=== PATIENT | male | born 1940 | race Caucasian/White ===

== ENCOUNTER 2020-03-11 13:12 | Day surgery (SDC) | payer MEDICARE ==
[~2020-03-11] VITALS: Ht 175.3 cm; Wt 97.8 kg
[~2020-03-11 13:12] MED LIST: CLOP75TA35 PO; ENAL10TA19 PO; LIDOcaine 1% W/epiNEPHrine 1:100,000 20ml vial ONE; METO-539 PO; PROP20TA6 PO; SPIR25TA5 PO; TRAM50TA2 PO; fentaNYL/PF 50MCG/1 ML 2ML syringe ONE; midazolam 2 mg/2 ml injection ONE; vancomycin 1,000mg inj ONE
[2020-03-11] MEDS ORDERED: normal saline 1000ml 1,000 ML IV ONE (13:35)
[2020-03-11] MEDS ORDERED: ceFAZolin 2gm in dextrose, iso 50 ML IV ONE (13:40)
[2020-03-11] MEDS ORDERED: VANCOMYCIN 1,500MG inj. 1,500 MG in normal saline 500ml IV soln 500 ML IV ONE (13:40)
[2020-03-11] MEDS ORDERED: VANCOMYCIN 1,500MG inj. 1,500 MG in normal saline 500ml IV soln 300 ML IV ONE (13:49)
[2020-03-11] MEDS ORDERED: ZAR5T PO (13:53)
[2020-03-11] MEDS ORDERED: NITR1PAT25 TD (13:53)
[2020-03-11] MEDS ORDERED: APIX5TAB3 PO (13:53)
[2020-03-11] MEDS ORDERED: CARV25TA PO (13:53)
[2020-03-11] MEDS ORDERED: ASPI-611 PO (13:53)
[2020-03-11] MEDS ORDERED: PRAM0.122 PO (13:53)
[2020-03-11] MEDS ORDERED: FLO0.4C PO (13:53)
[2020-03-11] MEDS ORDERED: SPIR25TA PO (13:53)
[2020-03-11] MEDS ORDERED: PANT-47 PO (13:53)
[2020-03-11] MEDS ORDERED: CARB1TAB23 PO (13:53)
[2020-03-11] MEDS ORDERED: PRAV20TA4 PO (13:53)
[2020-03-11] MEDS ORDERED: FURO-150 PO (13:53)
[2020-03-11 14:16] LABS: BASOPHILS # (AUTO) 0.1 X10'3 (0-0.2); BASOPHILS % (AUTO) 1.1 % (0-1); EOSINOPHILS # (AUTO) 0.1 X10'3 (0-0.9); EOSINOPHILS % (AUTO) 1.4 % (0-6); HEMOGLOBIN 12.7 g/dl (14.0-17.9); LYMPHOCYTES # (AUTO) 2.4 X10'3 (1.1-4.8); LYMPHOCYTES % (AUTO) 24.3 % (21-51); MEAN CORPUSCULAR HEMOGLOBIN 29.3 PG (27.0-31.0); MEAN CORPUSCULAR HGB CONC 33.3 g/dL (33.0-36.5); MEAN PLATELET VOLUME 9.2 FL (7.4-10.4); MONOCYTES % (AUTO) 10.5 % (2-12); NEUTROPHILS # (AUTO) 6.3 X10'3 (1.8-7.7); NEUTROPHILS % (AUTO) 62.7 % (42-75); PLATELET COUNT 228 X10'3 (140-440); RED BLOOD COUNT 4.32 X10'6 (4.70-6.10); RED CELL DISTRIBUTION WIDTH 15.2 % (11.5-14.5)
[2020-03-11 14:20] VITALS: BP 133/67
[2020-03-11] MEDS ORDERED: midazolam 2 mg/2 ml injection ONE (14:32)
--- NOTE | 2020-03-11 14:33 | NUR ---
Called labor and delivery registered nurse to report pt chem panel needs to be redrawn, Nito robbins MD "is aware".
[2020-03-11 15:10] VITALS: BP 153/50
[2020-03-11 15:25] VITALS: BP 132/53
[2020-03-11 15:40] VITALS: BP 127/83
[2020-03-11 15:55] VITALS: BP 134/107
--- NOTE | 2020-03-11 16:07 | NUR ---
Problems reprioritized. Patient report given, questions answered & plan of care reviewed with Jeanne HERZOG.
[2020-03-11 16:30] VITALS: BP 128/46
== END 2020-03-11 17:00 | disposition home or self-care (01) ==
LOC: SSTAY O 13:12
PROVIDERS: ATTEND Internal Medicine Cardiovascular Disease
DX: Z45.02 Encounter for adjustment and management of automatic implantable cardiac defibrillator (principal); I42.0 Dilated cardiomyopathy; I44.7 Left bundle-branch block, unspecified; I47.2 Ventricular tachycardia; I48.20 Chronic atrial fibrillation, unspecified; I11.0 Hypertensive heart disease with heart failure; I50.9 Heart failure, unspecified; I25.10 Atherosclerotic heart disease of native coronary artery without angina pectoris; E78.5 Hyperlipidemia, unspecified; G20 Parkinson's disease; Z79.899 Other long term (current) drug therapy; Z79.82 Long term (current) use of aspirin; Z79.01 Long term (current) use of anticoagulants; Z95.5 Presence of coronary angioplasty implant and graft; Z72.89 Other problems related to lifestyle
CPT/HCPCS: 33264; 36415; 85025; 85610; 93005; 99152; 99153; C1882; J2250; J3010; J3370; J7030; A4620